=== PATIENT | male | born 1975 | race Caucasian/White ===

== ENCOUNTER 2020-07-04 21:07 | Inpatient (IN) ==
[2020-07-04] MEDS ORDERED: *HR* Heparin 5,000 UNIT/ML VIAL IVP ONE (21:29)
[2020-07-04] MEDS ORDERED: *HR* Heparin 5,000 UNIT/ML VIAL IVP PRN ×2 (21:29)
[2020-07-04] MEDS ORDERED: Heparin 25,000UNIT/250ML 1/2NS 25,000 UNIT/250 ML IV.SOLN IVC SCH (21:30)
[2020-07-04] MEDS ORDERED: Aspirin 81 MG TAB.CHEW ONE (21:31)
[2020-07-04] MEDS ORDERED: *HR* Heparin 5,000 UNIT/ML VIAL ONE (21:31)
[2020-07-04] MEDS ORDERED: *HR* Ticagrelor 90 MG TABLET ONE (21:32)
[2020-07-04] MEDS ORDERED: 0.9 % Sodium Chloride 1,000 ML ONE ×2 (21:32→21:48)
[2020-07-04] MEDS: Aspirin 81 MG TAB.CHEW PO ONE ×2 (21:36→21:43)
[2020-07-04] MEDS: *HR* Ticagrelor 90 MG TABLET PO ONE ×2 (21:38→21:43)
[2020-07-04] MEDS ORDERED: 0.9 % Sodium Chloride 500 ML IVC ONE (21:44)
[2020-07-04 21:46] LABS: Basophils % 0.3 %; Eosinophils # 0.1 K/mcL (0.0-0.6); Eosinophils % 0.8 %; Hematocrit 40.2 % (37.5-50.1); Hemoglobin 13.4 g/dL (12.9-16.9); Immature Granulocytes % 0.3 % (0-4); Lymphocytes # 4.5 K/mcL (0.6-4.6); Lymphocytes % 35.3 %; Mean Corpuscular HGB Conc 33.3 g/dL (31.6-35.5); Mean Corpuscular Hemoglobin 29.7 pg (28.0-33.3); Mean Corpuscular Volume 89.1 fL (83.0-100.0); Mean Platelet Volume 12.7 fL (9.4-12.4); Monocytes # 0.9 K/mcL (0.0-1.3); Monocytes % 6.8 %; Neutrophils # 7.2 K/mcL (1.6-8.9); Platelet Count 374 K/mcL (140-400); Red Blood Count 4.51 M/mcL (4.19-5.50); Red Cell Distribution Width 12.7 % (11.5-14.5); Segmented Neutrophils % 56.5 %; White Blood Count 12.8 K/mcL (4.3-11.1)
[2020-07-04] MEDS ORDERED: *HR* Heparin 10,000 UNIT/10 ML VIAL ONE (21:48)
[2020-07-04] MEDS ORDERED: Heparin 1,000 UNITS/500 mL 500 ML ONE ×2 (21:48→22:00)
[2020-07-04] MEDS ORDERED: Nitroglycerin 1,000 MCG/10 ML VIAL IV ONE (21:48)
[2020-07-04] MEDS ORDERED: ISOVUE-370 200 ML INFUS..BTL ONE ×2 (21:48→22:00)
[2020-07-04 21:50] LABS: INR 1.2; Prothrombin Time 13.3 Seconds (9.4-12.1)
[2020-07-04 21:53] LABS: Activated Partial Thrombo Time 28.7 Seconds (26.0-36.0)
[2020-07-04] MEDS ORDERED: *HR* FentaNYL (PF) 100 MCG/2 ML VIAL ONE (22:00)
[2020-07-04] MEDS ORDERED: *HR* Midazolam HCl 2 MG/2 ML VIAL ONE (22:00)
[2020-07-04 22:09] LABS: BUN/Creatinine Ratio 12 (6-26); Blood Urea Nitrogen 11 mg/dL (6-20); Calcium 9.5 mg/dL (8.6-10.3); Carbon Dioxide 29 mEq/L (23-29); Chloride 82 mEq/L (98-107); Glucose 706 mg/dL (70-105); Magnesium 1.8 mg/dL (1.6-2.6); Osmolality,Calculated 285 (280-300); Potassium 3.6 mEq/L (3.5-5.1); Sodium 121 mEq/L (136-145); Troponin I 2.53 ng/mL (< 0.04); eGFR For African Americans > 60 (> 60); eGFR For Non-African Americans > 60 (> 60)
[2020-07-04] MEDS ORDERED: Insulin Regular, Human 100 UNIT/ML SQ ONE (22:14)
[2020-07-04 22:17] LABS: VBG HCO3 28 mEq/L (21-27); VBG PCO2 42 mmHg (41-51); VBG PH 7.43 pH Units (7.32-7.42); VBG PO2 141 mmHg (25-50)
[2020-07-04] MEDS ORDERED: *HR* Atropine Sulfate 1 MG/10 ML SYRINGE ONE (22:27)
[2020-07-04] MEDS ORDERED: Tirofiban 12.5 MG/250ML 12.5 MG/250 ML BAG ONE (22:31)
[2020-07-04] MEDS ORDERED: Tirofiban 12.5 MG/250ML 12.5 MG/250 ML BAG IVC SCH ×2 (23:00→23:49)
[2020-07-04] MEDS ORDERED: Perflutren Lipid Microsphere 1.3 ML in 0.9 % Sodium Chloride 8.7 ML IVP PRN (23:04)
[2020-07-04] MEDS: 0.9 % Sodium Chloride 1,000 ML IVC SCH (23:28)
[2020-07-04] MEDS ORDERED: Insulin Regular, Human 100 UNIT/ML IV ONE (23:30)
[2020-07-04] MEDS ORDERED: Dextrose Gel 15 GM/37.5 ML TUBE PO PRN ×2 (23:31)
[2020-07-04] MEDS ORDERED: *HR* Dextrose 50 % in Water (Vial) 50 ML VIAL IVP PRN (23:31)
[2020-07-04] MEDS ORDERED: D5% in Water 1,000 ML IVC PRN (23:31)
[2020-07-04] MEDS: Insulin LISPRO 300 UNITS/3 ML VIAL SUBQ SCH (23:59)
[2020-07-05] MEDS: Insulin LISPRO 300 UNITS/3 ML VIAL SUBQ SCH ×3 (00:11→17:05)
[2020-07-05] MEDS: Morphine Sulfate 2 MG/ML SYRINGE IVP PRN ×3 (00:11→20:05)
[2020-07-05] MEDS ORDERED: Insulin Human Regular 100 UNIT in 0.9 % Sodium Chloride 100 ML IVC SCH (01:30)
[2020-07-05] MEDS: 0.9 % Sodium Chloride 1,000 ML IVC SCH (04:30)
[2020-07-05 05:20] LABS: Basophils % 0.3 %; Eosinophils # 0.1 K/mcL (0.0-0.6); Eosinophils % 0.8 %; Hematocrit 37.2 % (37.5-50.1); Hemoglobin 12.3 g/dL (12.9-16.9); Immature Granulocytes % 0.3 % (0-4); Lymphocytes # 3.8 K/mcL (0.6-4.6); Lymphocytes % 33.4 %; Mean Corpuscular HGB Conc 33.1 g/dL (31.6-35.5); Mean Corpuscular Hemoglobin 28.8 pg (28.0-33.3); Mean Corpuscular Volume 87.1 fL (83.0-100.0); Monocytes # 0.8 K/mcL (0.0-1.3); Monocytes % 7.1 %; Neutrophils # 6.6 K/mcL (1.6-8.9); Platelet Count 382 K/mcL (140-400); Red Blood Count 4.27 M/mcL (4.19-5.50); Red Cell Distribution Width 12.5 % (11.5-14.5); Segmented Neutrophils % 58.1 %; White Blood Count 11.3 K/mcL (4.3-11.1)
[2020-07-05 05:39] LABS: Troponin I 5.33 ng/mL (< 0.04)
[2020-07-05 06:16] LABS: BUN/Creatinine Ratio 11 (6-26); Blood Urea Nitrogen 7 mg/dL (6-20); Calcium 8.7 mg/dL (8.6-10.3); Carbon Dioxide 26 mEq/L (23-29); Chloride 98 mEq/L (98-107); Chol/HDL Ratio 23.1 (0-4.9); Cholesterol 393 mg/dL (< 200); Glucose 146 mg/dL (70-105); HDL Cholesterol 17 mg/dL (40-59); Osmolality,Calculated 281 (280-300); Sodium 135 mEq/L (136-145); Triglycerides 1586 mg/dL (< 150); eGFR For African Americans > 60 (> 60); eGFR For Non-African Americans > 60 (> 60)
[2020-07-05 07:13] LABS: Magnesium 1.8 mg/dL (1.6-2.6)
[2020-07-05] MEDS ORDERED: Insulin DETEMIR 100 UNIT/ML X5UNITS SUBQ ONE (07:25)
[2020-07-05] MEDS: carvediloL 6.25 MG TABLET PO SCH ×2 (08:13→17:04)
[2020-07-05] MEDS: *HR* Ticagrelor 90 MG TABLET PO SCH ×2 (08:13→20:28)
[2020-07-05] MEDS: lisinopriL 5 MG TABLET PO SCH (08:14)
[2020-07-05] MEDS: Aspirin 81 MG TAB.CHEW PO SCH (08:14)
[2020-07-05] MEDS ORDERED: Insulin LISPRO 300 UNITS/3 ML VIAL SUBQ SCH ×4 (11:30→21:00)
[2020-07-05 12:06] LABS: Hemoglobin A1C > 18.7 %
[2020-07-05] MEDS: Insulin DETEMIR 100 UNIT/ML X5UNITS SUBQ SCH (20:27)
[2020-07-05 20:53] LABS: Amphetamine Screen,Urine Negative ng/mL (Cutoff=1000); Barbiturate Screen,Urine Negative ng/mL (Cutoff=200); Benzodiazepines Screen,Urine Positive ng/mL (Cutoff=200); Cannabinoid Screen,Urine Negative ng/mL (Cutoff = 50); Cocaine Screen,Urine Negative ng/mL (Cutoff= 300); Opiate Screen,Urine Positive ng/mL (Cutoff=300); Phencyclidine Screen,Urine Negative ng/mL (Cutoff=25)
[2020-07-05 22:48] LABS: Potassium 3.8 mEq/L (3.5-5.1)
[2020-07-05 23:25] LABS: BUN/Creatinine Ratio 15 (6-26); Blood Urea Nitrogen 11 mg/dL (6-20); Calcium 8.6 mg/dL (8.6-10.3); Carbon Dioxide 21 mEq/L (23-29); Chloride 100 mEq/L (98-107); Glucose 286 mg/dL (70-105); Magnesium 1.6 mg/dL (1.6-2.6); Osmolality,Calculated 280 (280-300); Sodium 130 mEq/L (136-145); eGFR For African Americans > 60 (> 60); eGFR For Non-African Americans > 60 (> 60)
[2020-07-05] MEDS ORDERED: Calcium Gluconate 1gm/50mL 1 GM/50 ML BAG IVPB PRN (23:49)
[2020-07-05] MEDS ORDERED: Potassium Phosphate 44 MEQ in 0.9 % Sodium Chloride 250 ML IVPB PRN (23:49)
[2020-07-06] MEDS: Morphine Sulfate 2 MG/ML SYRINGE IVP PRN ×5 (06:02→21:24)
[2020-07-06] MEDS: *HR* Heparin 5,000 UNIT/ML VIAL SQ SCH ×3 (06:02→18:20)
[2020-07-06 06:10] LABS: Basophils % 0.2 %; Eosinophils # 0.1 K/mcL (0.0-0.6); Eosinophils % 0.7 %; Hematocrit 39.9 % (37.5-50.1); Hemoglobin 12.9 g/dL (12.9-16.9); Immature Granulocytes % 0.4 % (0-4); Lymphocytes # 4.3 K/mcL (0.6-4.6); Lymphocytes % 25.7 %; Mean Corpuscular HGB Conc 32.3 g/dL (31.6-35.5); Mean Corpuscular Volume 89.7 fL (83.0-100.0); Mean Platelet Volume 12.4 fL (9.4-12.4); Monocytes # 1.1 K/mcL (0.0-1.3); Monocytes % 6.2 %; Neutrophils # 11.3 K/mcL (1.6-8.9); Nucleated Red Blood Cells 0.1 /100 WBC (0); Platelet Count 445 K/mcL (140-400); Red Blood Count 4.45 M/mcL (4.19-5.50); Red Cell Distribution Width 13.2 % (11.5-14.5); Segmented Neutrophils % 66.8 %; White Blood Count 16.9 K/mcL (4.3-11.1)
[2020-07-06 06:29] LABS: Magnesium 1.8 mg/dL (1.6-2.6); Phosphorous 2.3 mg/dL (2.7-4.5)
[2020-07-06 06:42] LABS: Thyroid Stimulating Hormone 0.312 mcIU/mL (0.340-5.600)
[2020-07-06 06:51] LABS: BUN/Creatinine Ratio 14 (6-26); Blood Urea Nitrogen 10 mg/dL (6-20); Calcium 8.7 mg/dL (8.6-10.3); Carbon Dioxide 20 mEq/L (23-29); Chloride 100 mEq/L (98-107); Glucose 300 mg/dL (70-105); Osmolality,Calculated 280 (280-300); Potassium 4.2 mEq/L (3.5-5.1); Sodium 130 mEq/L (136-145); eGFR For African Americans > 60 (> 60); eGFR For Non-African Americans > 60 (> 60)
[2020-07-06] MEDS: Insulin LISPRO 300 UNITS/3 ML VIAL SUBQ SCH ×3 (08:07→16:41)
[2020-07-06] MEDS: carvediloL 6.25 MG TABLET PO SCH ×2 (08:08→16:40)
[2020-07-06] MEDS: *HR* Ticagrelor 90 MG TABLET PO SCH ×2 (08:09→21:23)
[2020-07-06] MEDS: lisinopriL 5 MG TABLET PO SCH (08:09)
[2020-07-06] MEDS: Insulin DETEMIR 100 UNIT/ML X5UNITS SUBQ SCH ×2 (08:09→21:24)
[2020-07-06] MEDS: Aspirin 81 MG TAB.CHEW PO SCH (08:09)
[2020-07-06] MEDS ORDERED: Insulin DETEMIR 100 UNIT/ML X5UNITS SUBQ ONE (12:00)
[2020-07-06] MEDS ORDERED: Dextrose Gel 15 GM/37.5 ML TUBE PO PRN ×2 (13:40)
[2020-07-06] MEDS ORDERED: Perflutren Lipid Microsphere 1.3 ML in 0.9 % Sodium Chloride 8.7 ML IVP PRN (13:40)
[2020-07-06] MEDS ORDERED: *HR* Dextrose 50 % in Water (Vial) 50 ML VIAL IVP PRN (13:40)
[2020-07-06] MEDS ORDERED: Calcium Gluconate 1gm/50mL 1 GM/50 ML BAG IVPB PRN (13:40)
[2020-07-06] MEDS ORDERED: D5% in Water 1,000 ML IVC PRN (13:40)
[2020-07-06] MEDS ORDERED: Potassium Phosphate 44 MEQ in 0.9 % Sodium Chloride 250 ML IVPB PRN (13:40)
[2020-07-06 14:40] LABS: Phosphorous 3.3 mg/dL (2.7-4.5)
[2020-07-06] MEDS ORDERED: Insulin LISPRO 300 UNITS/3 ML VIAL SUBQ SCH (21:00)
[2020-07-06] MEDS ORDERED: Insulin DETEMIR 100 UNIT/ML X5UNITS SUBQ SCH (21:00)
[2020-07-07] MEDS: Morphine Sulfate 2 MG/ML SYRINGE IVP PRN ×3 (03:10→11:01)
[2020-07-07] MEDS: *HR* Heparin 5,000 UNIT/ML VIAL SQ SCH (03:11)
[2020-07-07 06:22] LABS: BUN/Creatinine Ratio 20 (6-26); Blood Urea Nitrogen 14 mg/dL (6-20); Calcium 9.2 mg/dL (8.6-10.3); Carbon Dioxide 22 mEq/L (23-29); Chloride 95 mEq/L (98-107); Glucose 322 mg/dL (70-105); Osmolality,Calculated 281 (280-300); Potassium 4.2 mEq/L (3.5-5.1); Sodium 129 mEq/L (136-145); eGFR For African Americans > 60 (> 60); eGFR For Non-African Americans > 60 (> 60)
[2020-07-07] MEDS: *HR* Ticagrelor 90 MG TABLET PO SCH (07:53)
[2020-07-07] MEDS: carvediloL 6.25 MG TABLET PO SCH (07:53)
[2020-07-07] MEDS: Insulin DETEMIR 100 UNIT/ML X5UNITS SUBQ SCH (07:53)
[2020-07-07] MEDS: Insulin LISPRO 300 UNITS/3 ML VIAL SUBQ SCH ×2 (07:57→11:39)
[2020-07-07] MEDS ORDERED: lisinopriL 5 MG TABLET PO SCH (09:00)
[2020-07-07] MEDS ORDERED: Aspirin 81 MG TAB.CHEW PO SCH (09:00)
[2020-07-07 11:29] VITALS: BP 101/66
== END 2020-07-07 13:50 | disposition home or self-care (01) | DRG 174 ==
LOC: ICNU 21:07 → EMEROOARM 21:07 → ICNU 22:30 → 2NNU 07-06 23:24
PROVIDERS: ADMIT Internal Medicine; ATTEND Internal Medicine